=== PATIENT | female | born 1965 | race Caucasian/White ===

== ENCOUNTER → 2017-02-03 15:31 | Outpatient (CLI) | payer BC ==
[2015-10-03 08:07] VITALS: BMI 28.4
[~2017-02-03 15:31] MED LIST: ATIVAN1 MG PO; FISH OIL 500 MG1 CAP PO; HYDROCHLOROTH12.5 M1 PO; TIROSINT50 MCG PO; ZOLOFT50 MG PO
== END | disposition home or self-care (01) ==
LOC: D.RAD 15:31
DX: M54.12 Radiculopathy, cervical region (principal); M48.02 Spinal stenosis, cervical region; M48.03 Spinal stenosis, cervicothoracic region

== ENCOUNTER → 2019-01-08 08:12 | Outpatient (CLI) | payer BC ==
[2015-10-03 08:07] VITALS: BMI 28.4
== END | disposition home or self-care (01) ==
LOC: D.US 08:00
PROVIDERS: ATTEND Surgery
DX: K76.89 Other specified diseases of liver (principal)

== ENCOUNTER → 2020-12-18 07:57 | Outpatient (CLI) | payer BC ==
[2015-10-03 08:07] VITALS: BMI 28.4
== END | disposition home or self-care (01) ==
LOC: D.RT 10-31 08:00
PROVIDERS: ATTEND Internal Medicine Pulmonary Disease
DX: J42 Unspecified chronic bronchitis (principal)